=== PATIENT | male | born 1975 | race Caucasian/White ===

== ENCOUNTER 2023-11-20 09:05 | Outpatient (AMB) | payer MEDICARE, MEDICAID, SELFPAY ==
--- NOTE | 2023-11-20 09:07 | MHC.OFFVIS ---
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 Accompanied by: Self / Same As Patient Allergies bee sting Adverse Reaction (Unknown, Uncoded 11/20/23 08:47) Angioedema HPI Chronic pain, peripheral neuropathy/confirmed HPI Details Patient is a pleasant 48 years old male with complex medical and surgical history including diabetes was poorly controlled, improving now (A1C 13.0 down to 7 now), peripheral neuropathy, CKD III, hypothyroidism, arthritis, anxiety depression, left hand surgery, mechanical fall which resulted in right tibial plateua fracture and MSSA bacteremia with RLE hardware infection, s/p skin graft and on chronic suppressive antibiotics, ischemic cardiomyopathy, HTN, HLD, CAD s/p CABD FUNK to LAD 2013 c/b progressive HFrEF with low LV function which resulted in HeartMate3 VAD Implant in 2018 at [facility]. Patient has since moved to [facility] to be under the care of [facility] Cardiac Transplant team. He is working on getting his A1C down to 6.0. A1C 11.6% in June 2023, prior to that was 13 when he was without insulin for a period of time. Patient has multiple pain generators, including shoulders, right knee and right leg pain, and bilateral feet due to diabetic neuropathy. He was under the care of [facility] Pain and Quality Assurance Test Program Manager, last seen in June 2022. He is on long-term anticoagulation on warfarin. He attends [facility] Cardiology team biweekly for VAD readings and denies any recent hypotensive episodes. He was told he needs shoulder surgery but not candidate until he undergoes heart transplant. Patient has pending [facility] Orthopedic evaluation for right knee and leg pain. There is audible grinding of the right knee joint and significant crepitus with right knee flexion. Patient reports his Orthopedic visit has not been scheduled yet as [facility] awaits records from [place]. No recent imaging is available for right knee. Pain is localized to anterior aspect of right knee with mild tenderness around his skin grafting of proximal tibia. Reports decreased sensation along lateral aspect of right lower leg since right leg surgery and skin graft. Patient has been taking gabapentin and hydrocodone-Acetaminophen 5-325 mg. Pain affects his daily activities, functioning, sleep, social activities, mood and quality of life. Current medication regime decreases his pain to 4/10 which allows him to be less symptomatic and more functional. He take buspirone and eszopiclone for depression and insomnia. Patient sleeps in recliner and reports frequent moderate-high levels of anxiety due to VAD implant humming noise as well as worry about his heart condition. Denies any fever, chills, weight loss, abdominal or groin pain, shortness of breaths, chest pain, foot drop, weakness, bladder or bowel dysfunction, or saddle anesthesia. Location Bilateral shoulder, right leg, bilateral feet and hands neuropathy Duration Shoulders -6 years, right leg -2 years, feet -3 years Characteristics of symptom or complaint Pounding, shooting, stabbing, pinching, tingling, burning, sharp, piercing Aggravating or associated factors Movements, walking, standing, climbing stairs, daily chores, cold weather Relieving factors Vicodin, sitting, topical applications, lidocaine patches Treatment PT- no improvement, starts Cardiac Rehab 11/28/23 [facility] Medical History (Updated 11/20/23 @ 12:19 by HASEEB Edouard) History of tibial fracture Bilateral shoulder pain Other chronic pain 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 Chronic pain CKD (chronic kidney disease), stage III MSSA bacteremia Hypercholesterolemia Ischemic cardiomyopathy CAD (coronary artery disease) Depression Hypothyroidism Hypertension Diabetes Anxiety Arthritis Surgical History History of left ventricular assist device (LVAD) H/O hand surgery Social History Alcohol intake: never Patient Tobacco Use Status: Former Tobacco user Review of Systems Const All systems reviewed & are unremarkable except as noted in HPI and below Physical Exam Vital Signs: Last Vital Signs Resp 16 11/20/23 09:12 BMI result Body Mass Index 34.3 General: Appears afebrile. Alert and oriented. Mood and affect appropriate. Pleasant. Follows and participates in conversation appropriately. Respiratory effort is unlabored. No cough. Able to transition from sit to stand unassisted. Ambulates with bilaterally normal heel strike and toe off. Has VAD implant and Dexicomp monitor Cardio Other: VAD HeartMate3 Implant Pump Speed-5900 rpm, Flow-5.2 lpm, PI-2.9-3.0, Power-5.0 W Back/Spine/Pelvis Cervical Spine: cervical ROM normal and No Cervical spine tenderness Thoracic/Lumbar Spine: thoracic and lumbar spine normal to inspection, No Thoracic/lumbar spine scar(s), thoraco-lumbar ROM normal, No thoracic spinal tenderness and No lumbar spinal tenderness Pelvis: no buttock tenderness Skin General skin exam: no rashes or lesions noted Extrem Other: There is a decreased sensation over the soles of the feet and toes. No breaks in the skin. No soft tissue swelling or warmth. Decreased sensation along lateral aspect of right lower leg since right leg surgery and skin graft. Right lower extremity: knee (limited ROM due to pain. Audible grinding of the right knee joint.) Details: tenderness (mild TTP along skin graft incisional lines proximal tibia) Location: of the patella, of the medial joint line and of the lateral joint line and crepitus; no ecchymosis and no unusual warmth Results Reviewed Results Reviewed: No imaging results are available for review today. Assessment & Plan Assessment & Plan (1) Right knee pain: Code(s): M25.561 - Pain in right knee (2) History of tibial fracture: Comment: h/o mechanical fall with resultant right tibial plateau fracture c/b hardware infection due to MSSA bacterimia Code(s): Z87.81 - Personal history of (healed) traumatic fracture (3) Chronic pain syndrome: Code(s): G89.4 - Chronic pain syndrome (4) Bilateral shoulder pain: Code(s): M25.511 - Pain in right shoulder; M25.512 - Pain in left shoulder (5) Chronic painful diabetic neuropathy: Code(s): E11.40 - Type 2 diabetes mellitus with diabetic neuropathy, unspecified Plan Discussed interventional treatments for right knee/leg pain and bilateral foot pain due diabetic peripheral neuropathy. Unfortunately, patient is not candidate for diagnostic injections due to his complex cardiac history, intermediate anticoagulation, VAD implant with HM3 and awaiting to get on heart transplant list. We discussed peripheral nerve stimulation trial for RLE pain for potential Sprint PNS device. Stimulation trial does not involve anesthetic nerve block. Patient will follow up with her cardiology provider and obtain clearance for this. Will try to arrange topical 8% capsaicin application for bilateral foot pain as the next step once we have confirmed availability. Patient reports his pain is well managed with hydrocodone-acetaminophen 5-325 mg and gabapentin which allow him to be less symptomatic and more functional. This is prescribed by his PCP. All questions and concerns have been answered and the patient agreed with the plan. Follow up as needed. Orders: Orders XR knee RT 3V Today M25.561 - Pain in right knee, Z87.81 - Personal history of (healed) traumatic fracture Coding Level of Care Code New Pt Level 4 (63044) Diagnoses Right knee pain M25.561 History of tibial fracture Z87.81 Chronic pain syndrome G89.4 Bilateral shoulder pain M25.511; M25.512 Chronic painful diabetic neuropathy E11.40
[2023-11-20 09:12] VITALS: RESP 16; BMI 34.3
== END 2023-11-20 10:01 | disposition home or self-care (01) ==
PROVIDERS: PCP Internal Medicine; Visit Provider Nurse Practitioner Family
DX: M25.561 Pain in right knee (principal); Z87.81 Personal history of (healed) traumatic fracture; G89.4 Chronic pain syndrome; M25.511 Pain in right shoulder; M25.512 Pain in left shoulder; E11.40 Type 2 diabetes mellitus with diabetic neuropathy, unspecified
CPT/HCPCS: 99204

== ENCOUNTER → 2023-11-20 09:05 | Outpatient (BNVA) | payer MEDICARE, SELFPAY | PROVIDERS: PCP Internal Medicine; Visit Provider Nurse Practitioner Family | DX: G89.4 Chronic pain syndrome (principal); M25.561 Pain in right knee; M25.511 Pain in right shoulder; M25.512 Pain in left shoulder; E11.40 Type 2 diabetes mellitus with diabetic neuropathy, unspecified; Z87.81 Personal history of (healed) traumatic fracture | CPT/HCPCS: 99202 ==

== ENCOUNTER 2023-12-20 13:12 | Outpatient (AMB) | payer MEDICARE, MEDICAID, SELFPAY ==
--- NOTE | 2023-12-20 13:13 | MHC.OFFVIS ---
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 Denies any recent cough, cold, infection, fever or other significant changes in medical history since last office visit. Patient reports he had follow up with his Cab Driver yesterday and was told his sitting MAP=86 and standing MAP=76. PRIOR: Patient is a pleasant 48 years old male with complex medical and surgical history including diabetes was poorly controlled, improving now (A1C 13.0 down to 7 now), peripheral neuropathy, CKD III, hypothyroidism, arthritis, anxiety depression, left hand surgery, mechanical fall which resulted in right tibial plateua fracture and MSSA bacteremia with RLE hardware infection, s/p skin graft and on chronic suppressive antibiotics, ischemic cardiomyopathy, HTN, HLD, CAD s/p CABD FUNK to LAD 2013 c/b progressive HFrEF with low LV function which resulted in HeartMate3 VAD Implant in 2018 at [facility]. Patient has since moved to [facility] to be under the care of [facility] Cardiac Transplant team. He is working on getting his A1C down to 6.0. A1C 11.6% in June 2023, prior to that was 13 when he was without insulin for a period of time. Patient has multiple pain generators, including shoulders, right knee and right leg pain, and bilateral feet due to diabetic neuropathy. He was under the care of [facility] Pain and Mobile Home Set Up Person, last seen in June 2022. He is on long-term anticoagulation on warfarin. He attends [facility] Cardiology team biweekly for VAD readings and denies any recent hypotensive episodes. He was told he needs shoulder surgery but not candidate until he undergoes heart transplant. Patient has pending [facility] Orthopedic evaluation for right knee and leg pain. There is audible grinding of the right knee joint and significant crepitus with right knee flexion. Patient reports his Orthopedic visit has not been scheduled yet as [facility] awaits records from [place]. No recent imaging is available for right knee. Pain is localized to anterior aspect of right knee with mild tenderness around his skin grafting of proximal tibia. Reports decreased sensation along lateral aspect of right lower leg since right leg surgery and skin graft. Patient has been taking gabapentin and hydrocodone-Acetaminophen 5-325 mg. Pain affects his daily activities, functioning, sleep, social activities, mood and quality of life. Current medication regime decreases his pain to 4/10 which allows him to be less symptomatic and more functional. He take buspirone and eszopiclone for depression and insomnia. Patient sleeps in recliner and reports frequent moderate-high levels of anxiety due to VAD implant humming noise as well as worry about his heart condition. Denies any fever, chills, weight loss, abdominal or groin pain, shortness of breaths, chest pain, foot drop, weakness, bladder or bowel dysfunction, or saddle anesthesia. Location Bilateral shoulder, right leg, bilateral feet and hands neuropathy Duration Shoulders -6 years, right leg -2 years, feet -3 years Characteristics of symptom or complaint Pounding, shooting, stabbing, pinching, tingling, burning, sharp, piercing Aggravating or associated factors Movements, walking, standing, climbing stairs, daily chores, cold weather Relieving factors Vicodin, sitting, topical applications, lidocaine patches Treatment PT- no improvement, starts Cardiac Rehab 11/28/23 [facility] Medical History History of tibial fracture Bilateral shoulder pain Other chronic pain 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 Chronic pain CKD (chronic kidney disease), stage III MSSA bacteremia Hypercholesterolemia Ischemic cardiomyopathy CAD (coronary artery disease) Depression Hypothyroidism Hypertension Diabetes Anxiety Arthritis Surgical History History of left ventricular assist device (LVAD) H/O hand surgery Social History Alcohol intake: never Patient Tobacco Use Status: Former Tobacco user Review of Systems Const All systems reviewed & are unremarkable except as noted in HPI and below Physical Exam Vital Signs: Last Vital Signs Resp 16 12/20/23 13:59 Pulse Ox 98 12/20/23 13:59 Oxygen Delivery Method Room Air 12/20/23 13:17 BMI result Body Mass Index 37.2 General: Appears afebrile. Alert and oriented. Mood and affect appropriate. Pleasant. Follows and participates in conversation appropriately. Respiratory effort is unlabored. No cough. Able to transition from sit to stand unassisted. Ambulates with bilaterally normal heel strike and toe off. Has VAD implant and Dexicomp monitor Cardio Other: VAD HeartMate3 Implant Pump Speed-5900 rpm, Flow-4.9 lpm, PI-2.1, Power-4.7 W Skin General skin exam: no rashes or lesions noted Extrem Other: There is a decreased sensation over the soles of the feet and toes. No breaks in the skin. No soft tissue swelling or warmth. Decreased sensation along lateral aspect of right lower leg since right leg surgery and skin graft. Right lower extremity: knee (limited ROM due to pain. Audible grinding of the right knee joint.) Details: tenderness (mild TTP along skin graft incisional lines proximal tibia) Location: of the patella, of the medial joint line and of the lateral joint line and crepitus Office Procedures Topical Capsaicin Date 1:: 12/20/23 Main area of pain on the body: Bilateral feet Laterality: Bilateral Location of left foot pain: Plantar, Dorsal, Medial, Lateral and Distal Location of right foot pain: Plantar, Dorsal, Medial, Lateral and Distal Quality of pain: Aching, Nagging, Burning, Gnawing, Numb-like and Tiring Details:: Two patches, 560 cm2 were utilized per each foot. EMLA Cream (lidocaine 2.5% and prilocaine 2.5%) was not applied by patient prior to application of the patches and he decided to proceed without EMLA cream. The patient tolerated the procedure well. Patient?s vitals signs remained stable throughout the procedure. Patient was able to complete the stipulated 30 minutes of the therapeutic application without any discomfort. Office Meds capsaicin-skin cleanser 8 % topical kit Performing Provider: HASEEB Edouard Performing Location: [facility] Administered by: HASEEB Edouard on 12/20/23 13:43 Dose Route Admin Location Dispensed Lot Number Expiration Date NDC Court Monitor 4 ea topical [facility] 4 ea [id number] 03/29/26 [id number] scroll kit Assessment & Plan Assessment & Plan (1) Chronic painful diabetic neuropathy: Code(s): E11.40 - Type 2 diabetes mellitus with diabetic neuropathy, unspecified (2) Chronic pain syndrome: Code(s): G89.4 - Chronic pain syndrome (3) Right knee pain: Code(s): M25.561 - Pain in right knee Plan Patient is status post 1st round of application of topical capsaicin 8% for peripheral neuropathy in bilateral feet. Patient tolerated the procedure without significant discomfort without application of EMLA cream prior to the procedure. He was discharged home in stable condition with discharge instructions. Patient continues to endorse right knee pain. He has pending cardiology clearance for stimulation trial that does not involve anesthetic nerve block. Unfortunately, patient is not candidate for diagnostic injections due to his complex cardiac history, fci anticoagulation, VAD implant with HM3 and awaiting to get on heart transplant list. Patient reports his pain is well managed with hydrocodone-acetaminophen 5-325 mg and gabapentin which allow him to be less symptomatic and more functional. This is prescribed by his PCP. All questions and concerns have been answered and the patient agreed with the plan. Follow up as needed. Greater than 35 minutes were spent in therapeutic application, and in coordination of the care. Orders: Orders AMB Capsaicin Patch - Practice Supplied Today E11.40 - Type 2 diabetes mellitus with diabetic neuropathy, unspecified Coding Level of Care Code Est Pt Level 4 (11063) Diagnoses Chronic painful diabetic neuropathy E11.40 Chronic pain syndrome G89.4 Right knee pain M25.561
[2023-12-20 13:17] VITALS: RESP 14; O2SAT 97; BMI 37.2
[2023-12-20 13:59] VITALS: RESP 16; O2SAT 98
[2023-12-20 14:39] VITALS: RESP 16; O2SAT 98
== END 2023-12-20 14:26 | disposition home or self-care (01) ==
PROVIDERS: PCP Internal Medicine; Visit Provider Nurse Practitioner Family
DX: E11.40 Type 2 diabetes mellitus with diabetic neuropathy, unspecified (principal); G89.4 Chronic pain syndrome; M25.561 Pain in right knee
CPT/HCPCS: 99214

== ENCOUNTER → 2023-12-20 13:12 | Outpatient (BNVA) | payer MEDICARE, MEDICAID, SELFPAY | PROVIDERS: PCP Internal Medicine; Visit Provider Nurse Practitioner Family | DX: E11.40 Type 2 diabetes mellitus with diabetic neuropathy, unspecified (principal); M25.561 Pain in right knee; G89.4 Chronic pain syndrome; F11.20 Opioid dependence, uncomplicated; Z79.01 Long term (current) use of anticoagulants | CPT/HCPCS: 17999; 99212; J7336 ==

== ENCOUNTER 2024-03-21 11:16 | Outpatient (AMB) | payer MEDICARE, MEDICAID, SELFPAY ==
--- NOTE | 2024-03-21 11:22 | A.OFFVIS_ITS ---
Vital Signs 03/21/24 11:34 03/21/24 11:49 03/21/24 12:05 Height 5 ft 11 in Weight 262 lb BMI 36.5 BP not taken reason Medical Reason Medical Reason Medical Reason Respiration 16 16 16 Pulse Oximetry (%) 96 97 Oxygen Delivery Method Room Air Room Air Intake Visit Reasons: Qutenza Intake Note: Pain today 05/07 Insulator Helper Required: No Accompanied by: Self / Same As Patient Allergies bee sting Adverse Reaction (Unknown, Uncoded 11/20/23 08:47) Angioedema HPI Comments Details: Patient presents for 2nd application of capsaicin 8% topical patch for peripheral neuropathy in bilateral feet. Denies any recent cough, cold, infection, fever or other significant changes in medical history since last office visit. 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 PRIOR: Patient is a pleasant 48 years old male with complex medical and surgical history including diabetes was poorly controlled, improving now (A1C 13.0 down to 7 now), peripheral neuropathy, CKD III, hypothyroidism, arthritis, anxiety depression, left hand surgery, mechanical fall which resulted in right tibial plateua fracture and MSSA bacteremia with RLE hardware infection, s/p skin graft and on chronic suppressive antibiotics, ischemic cardiomyopathy, HTN, HLD, CAD s/p CABD FUNK to LAD 2013 c/b progressive HFrEF with low LV function which resulted in HeartMate3 VAD Implant [address] [facility]. Patient has since moved to [facility] to be under the care of [facility] Cardiac Transplant team. He is working on getting his A1C down to 6.0. A1C 11.6% in June 2023, prior to that was 13 when he was without insulin for a period of time. Patient has multiple pain generators, including shoulders, right knee and right leg pain, and bilateral feet due to diabetic neuropathy. He was under the care of [facility] Pain and Physician Assistant, last seen in June 2022. He is on long-term anticoagulation on warfarin. He attends [facility] Cardiology team biweekly for VAD readings and denies any recent hypotensive episodes. He was told he needs shoulder surgery but not candidate until he undergoes heart transplant. Patient has pending [facility] Orthopedic evaluation for right knee and leg pain. There is audible grinding of the right knee joint and significant crepitus with right knee flexion. Patient reports his Orthopedic visit has not been scheduled yet as [facility] awaits records from [place]. No recent imaging is available for right knee. Pain is localized to anterior aspect of right knee with mild tenderness around his skin grafting of proximal tibia. Reports decreased sensation along lateral aspect of right lower leg since right leg surgery and skin graft. Patient has been taking gabapentin and hydrocodone-Acetaminophen 5-325 mg. Pain affects his daily activities, functioning, sleep, social activities, mood and quality of life. Current medication regime decreases his pain to 4/10 which allows him to be less symptomatic and more functional. He take buspirone and eszopiclone for depression and insomnia. Patient sleeps in recliner and reports frequent moderate-high levels of anxiety due to VAD implant humming noise as well as worry about his heart condition. Denies any fever, chills, weight loss, abdominal or groin pain, shortness of breaths, chest pain, foot drop, weakness, bladder or bowel dysfunction, or saddle anesthesia. Location Bilateral shoulder, right leg, bilateral feet and hands n europathy Duration Shoulders -6 years, right leg -2 years, feet -3 years Characteristics of symptom or complaint Pounding, shooting, stabbing, pinching, tingling, burning, sharp, piercing Aggravating or associated factors Movements, walking, standing, climbing stairs, daily chores, cold weather Relieving factors Vicodin, sitting, topical applications, lidocaine patches Treatment PT- no improvement, starts Cardiac Rehab 11/28/23 [facility] Medical History History of tibial fracture Bilateral shoulder pain Other chronic pain 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 Chronic pain CKD (chronic kidney disease), stage III MSSA bacteremia Hypercholesterolemia Ischemic cardiomyopathy CAD (coronary artery disease) Depression Hypothyroidism Hypertension Diabetes Anxiety Arthritis Surgical History History of left ventricular assist device (LVAD) H/O hand surgery Social History Alcohol intake: never Patient Tobacco Use Status: Former Tobacco user Review of Systems Const All systems reviewed & are unremarkable except as noted in HPI and below Physical Exam Vital Signs: Last Vital Signs Resp 16 03/21/24 11:49 Pulse Ox 96 03/21/24 11:49 Oxygen Delivery Method Room Air 03/21/24 11:49 BMI result Body Mass Index 36.5 General: Appears afebrile. Alert and oriented. Mood and affect appropriate. Pleasant. Follows and participates in conversation appropriately. Respiratory effort is unlabored. No cough. Able to transition from sit to stand unassisted. Ambulates with bilaterally normal heel strike and toe off. Has VAD implant and Dexicomp monitor Cardio Other: VAD HeartMate3 Implant Pump Speed-5900 rpm, Flow-3.7 lpm, PI-6.9, Power-5.0 W Skin General skin exam: no rashes or lesions noted Extrem Other: There is a decreased sensation over the soles of the feet and toes. No breaks in the skin. No soft tissue swelling or warmth. Decreased sensation along lateral aspect of right lower leg since right leg surgery and skin graft. General: Yes capillary refill normal, Yes no clubbing, cyanosis or edema and Yes no calf tenderness Right lower extremity: knee (limited ROM due to pain. Audible grinding of the right knee joint.) Details: tenderness (mild TTP along skin graft incisional lines proximal tibia) Location: of the patella, of the medial joint line and of the lateral joint line and crepitus Office Procedures Topical Capsaicin Date 1:: 12/20/23 Date 2:: 03/21/24 Main area of pain on the body: Bilateral feet and toes Laterality: Bilateral Location of left foot pain: Plantar, Dorsal, Medial, Lateral and Distal Location of right foot pain: Plantar, Dorsal, Medial, Lateral and Distal Quality of pain: Aching, Nagging, Burning, Gnawing, Numb-like, Tiring and Penetrating Details:: Two patches, 560 cm2 were utilized per each foot. EMLA Cream (lidocaine 2.5% and prilocaine 2.5%) was not applied at home by patient prior to application of the patches. Patient elected to proceed with the procedure without EMLA cream. The patient tolerated the procedure well. Patient?s vitals signs remained stable throughout the procedure. Patient was able to complete the stipulated 30 minutes of the therapeutic application without any discomfort. Office Meds capsaicin-skin cleanser 8 % topical kit Performing Provider: HASEEB Edouard Performing Location: [facility] Administered by: HASEEB Edouard on 03/21/24 11:33 Dose Route Admin Location Dispensed Lot Number Expiration Date [employer] 4 ea topical [facility] 4 ea 04/28/2026 04/28/26 25638-038-32 [employer] Assessment & Plan Assessment & Plan (1) Chronic pain syndrome: Code(s): G89.4 - Chronic pain syndrome Category: Medical (2) Chronic painful diabetic neuropathy: Code(s): E11.40 - Type 2 diabetes mellitus with diabetic neuropathy, unspecified Category: Medical (3) Right knee pain: Code(s): M25.561 - Pain in right knee Category: Medical Plan Patient is status post 2nd round of application of topical capsaicin 8% for peripheral neuropathy in bilateral feet. Patient tolerated the procedure without significant discomfort without application of EMLA cream prior to the procedure. He was discharged home in stable condition with discharge instructions. Patient reports chronic right knee pain is well managed with hydrocodone- acetaminophen 5-325 mg and gabapentin which is prescribed by his PCP. All questions and concerns have been answered and the patient agreed with the plan. Follow up as needed. Greater than 35 minutes were spent in therapeutic application, and in coordination of the care. Orders: Orders AMB Capsaicin Patch - Practice Supplied Today E11.40 - Type 2 diabetes mellitus with diabetic neuropathy, unspecified, G89.4 - Chronic pain syndrome Medications: Refilled lidocaine-prilocaine 2.5-2.5 % Apply 15-30 min to both feet prior to Qutenza application visit 1 appl topical ONCE 2 days 30 grams 3RF pain E11.40 - Type 2 diabetes mellitus with diabetic neuropathy, unspecified lidocaine-prilocaine 2.5-2.5 % Apply 15-30 min to both feet prior to Qutenza application visit 1 appl topical ONCE 2 days 30 grams 3RF pain E11.40 - Type 2 diabetes mellitus with diabetic neuropathy, unspecified Coding Level of Care Code Est Pt Level 4 (44700) Diagnoses Chronic pain syndrome G89.4 Chronic painful diabetic neuropathy E11.40 Right knee pain M25.561
[2024-03-21 11:34] VITALS: RESP 16; BMI 36.5
[2024-03-21 11:49] VITALS: RESP 16; O2SAT 96
[2024-03-21 12:05] VITALS: RESP 16; O2SAT 97
== END 2024-03-21 12:06 | disposition home or self-care (01) ==
PROVIDERS: PCP Internal Medicine; Visit Provider Nurse Practitioner Family
DX: G89.4 Chronic pain syndrome (principal); E11.40 Type 2 diabetes mellitus with diabetic neuropathy, unspecified; M25.561 Pain in right knee
CPT/HCPCS: 17999; 99214

== ENCOUNTER → 2024-03-21 11:16 | Outpatient (BNVA) | payer MEDICARE, MEDICAID, SELFPAY | PROVIDERS: PCP Internal Medicine; Visit Provider Nurse Practitioner Family | DX: E11.40 Type 2 diabetes mellitus with diabetic neuropathy, unspecified (principal); G89.4 Chronic pain syndrome; M25.561 Pain in right knee | CPT/HCPCS: 17999; 99212; J7336 ==

== ENCOUNTER → 2024-06-23 11:02 | Outpatient (BNVA) | payer MEDICARE, MEDICAID, SELFPAY | PROVIDERS: PCP Internal Medicine; Visit Provider Nurse Practitioner Family ==

== ENCOUNTER 2024-07-01 10:20 | Outpatient (AMB) | payer MEDICARE, MEDICAID, SELFPAY ==
--- NOTE | 2024-07-01 10:25 | MHC.OFFVIS ---
Vital Signs 07/01/24 10:30 07/01/24 11:22 07/01/24 11:23 Height 5 ft 11 in Weight 268 lb BMI 37.4 BP not taken reason Medical Reason Medical Reason Medical Reason Respiration 16 16 16 Comment 15 mins after Qutenza application 30 mins after qutenza application Intake Visit Reasons: Qutenza Allergies bee sting Adverse Reaction (Unknown, Uncoded 11/20/23 08:47) Angioedema Medication List - Last Reconciled 07/01/24 by HASEEB Edouard amlodipine 10 mg PO DAILY atorvastatin 80 mg PO DAILY buspirone 30 mg PO BID carvedilol 37.5 mg PO BID cephalexin 500 mg PO TID dicyclomine mg PO escitalopram oxalate 20 mg PO DAILY eszopiclone 2 mg PO BEDTIME PRN fluoxetine 40 mg PO BID furosemide 40 - 80 mg PO DAILY gabapentin mg PO DAILY insulin aspart U-100 (Novolog FlexPen U-100 Insulin aspart) subcut insulin glargine (Lantus U-100 Insulin) units subcut levothyroxine 150 mcg PO DAILY lidocaine-prilocaine 2.5-2.5 % 1 appl topical ONCE 2 days oxycodone 10 mg PO QID PRN sacubitril-valsartan 97-103 mg (Entresto) 1 tab PO BID spironolactone 25 mg PO DAILY tirzepatide (Mounjaro) mg subcut warfarin (Jantoven) 7.5 mg PO DAILY HPI Comments Details: Patient presents for 3rd application of capsaicin 8% topical patch for peripheral neuropathy in bilateral feet. He reports ongoing right knee pain and is scheduled to undergo left knee CT scan on 07/04/24. Denies any recent cough, cold, infection, fever or other significant changes in medical history since last office visit. PRIOR: Patient is a pleasant 48 years old male with complex medical and surgical history including diabetes was poorly controlled, improving now (A1C 13.0 down to 7 now), peripheral neuropathy, CKD III, hypothyroidism, arthritis, anxiety depression, left hand surgery, mechanical fall which resulted in right tibial plateua fracture and MSSA bacteremia with RLE hardware infection, s/p skin graft and on chronic suppressive antibiotics, ischemic cardiomyopathy, HTN, HLD, CAD s/p CABD FUNK to LAD 2013 c/b progressive HFrEF with low LV function which resulted in HeartMate3 VAD Implant in 2018 at [facility]. Patient has since moved to [facility] to be under the care of [facility] Cardiac Transplant team. He is working on getting his A1C down to 6.0. A1C 11.6% in June 2023, prior to that was 13 when he was without insulin for a period of time. Patient has multiple pain generators, including shoulders, right knee and right leg pain, and bilateral feet due to diabetic neuropathy. He was under the care of [facility] Pain and Headliner Installer, last seen in June 2022. He is on long-term anticoagulation on warfarin. He attends [facility] Cardiology team biweekly for VAD readings and denies any recent hypotensive episodes. He was told he needs shoulder surgery but not candidate until he undergoes heart transplant. Patient has pending [facility] Orthopedic evaluation for right knee and leg pain. There is audible grinding of the right knee joint and significant crepitus with right knee flexion. Patient reports his Orthopedic visit has not been scheduled yet as [facility] awaits records from [place]. No recent imaging is available for right knee. Pain is localized to anterior aspect of right knee with mild tenderness around his skin grafting of proximal tibia. Reports decreased sensation along lateral aspect of right lower leg since right leg surgery and skin graft. Patient has been taking gabapentin and hydrocodone-Acetaminophen 5-325 mg. Pain affects his daily activities, functioning, sleep, social activities, mood and quality of life. Current medication regime decreases his pain to 4/10 which allows him to be less symptomatic and more functional. He take buspirone and eszopiclone for depression and insomnia. Patient sleeps in recliner and reports frequent moderate-high levels of anxiety due to VAD implant humming noise as well as worry about his heart condition. Denies any fever, chills, weight loss, abdominal or groin pain, shortness of breaths, chest pain, foot drop, weakness, bladder or bowel dysfunction, or saddle anesthesia. Location Bilateral shoulder, right leg, bilateral feet and hands neuropathy Duration Shoulders -6 years, right leg -2 years, feet -3 years Characteristics of symptom or complaint Pounding, shooting, stabbing, pinching, tingling, burning, sharp, piercing Aggravating or associated factors Movements, walking, standing, climbing stairs, daily chores, cold weather Relieving factors Vicodin, sitting, topical applications, lidocaine patches Treatment PT- no improvement, starts Cardiac Rehab 11/28/23 [facility] Medical History History of tibial fracture Bilateral shoulder pain Other chronic pain 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 Chronic pain CKD (chronic kidney disease), stage III MSSA bacteremia Hypercholesterolemia Ischemic cardiomyopathy CAD (coronary artery disease) Depression Hypothyroidism Hypertension Diabetes Anxiety Arthritis Surgical History History of left ventricular assist device (LVAD) H/O hand surgery Social History Alcohol intake: never Patient Tobacco Use Status: Former Tobacco user Review of Systems Const All systems reviewed & are unremarkable except as noted in HPI and below Physical Exam Vital Signs: Last Vital Signs Resp 16 07/01/24 11:23 BMI result Body Mass Index 37.4 General: Appears afebrile. Alert and oriented. Mood and affect appropriate. Pleasant. Follows and participates in conversation appropriately. Respiratory effort is unlabored. No cough. Able to transition from sit to stand unassisted. Ambulates with bilaterally normal heel strike and toe off. Has VAD implant and Dexicomp monitor. Cardio Other: VAD HeartMate3 Implant Pump Speed-5850 rpm, Flow-4.2 lpm, PI-3.0, Power-4.7 W Skin General skin exam: no rashes or lesions noted Extrem Other: There is a decreased sensation over the soles of the feet and toes. No breaks in the skin. No soft tissue swelling or warmth. Decreased sensation along lateral aspect of right lower leg since right leg surgery and skin graft. Feet are slightly cool to touch, otherwise skin is warm to touch. General: Yes capillary refill normal, Yes no clubbing, cyanosis or edema and Yes no calf tenderness Right lower extremity: knee (Limited ROM due to pain. ) Details: tenderness (mild TTP along skin graft incisional lines proximal tibia) Location: of the patella, of the medial joint line and of the lateral joint line and crepitus Office Procedures Topical Capsaicin Date 1:: 12/20/23 Date 2:: 03/21/24 Main area of pain on the body: Bilateral feet and toes Laterality: Bilateral Location of left foot pain: Anterior, Posterior, Plantar, Proximal, Dorsal, Medial, Lateral and Distal Location of right foot pain: Anterior, Posterior, Plantar, Proximal, Dorsal, Medial, Lateral and Distal Quality of pain: Aching, Nagging, Burning, Gnawing, Numb-like and Tiring Details:: Two patches, 560 cm2 were utilized per each foot. EMLA Cream (lidocaine 2.5% and prilocaine 2.5%) was not applied at home by patient prior to application of the patches. Patient elected to proceed with the procedure without EMLA cream. The patient tolerated the procedure well. Patient was able to complete the stipulated 30 minutes of the therapeutic application without any discomfort. Office Meds capsaicin-skin cleanser 8 % topical kit Performing Provider: HASEEB Edouard Performing Location: [facility] Administered by: HASEEB Edouard on 07/01/24 10:44 Dose Route Admin Location Dispensed Lot Number Expiration Date [facility] Inventory Checker 4 ea topical [facility] 4 ea [id number] 04/28/26 55013-390-92 [employer] Results Reviewed Results Reviewed: No imaging results are available for review today. Assessment & Plan Assessment & Plan (1) Chronic pain syndrome: Code(s): G89.4 - Chronic pain syndrome Category: Medical (2) Chronic painful diabetic neuropathy: Code(s): E11.40 - Type 2 diabetes mellitus with diabetic neuropathy, unspecified Category: Medical (3) Right knee pain: Code(s): M25.561 - Pain in right knee Category: Medical Plan Patient is status post 3rd round of application of topical capsaicin 8% for peripheral neuropathy in bilateral feet. Patient tolerated the procedure without significant discomfort without application of EMLA cream prior to the procedure. Patient was discharged home in stable condition with discharge instructions. Patient reports chronic right knee pain is well managed with oxycodone and gabapentin which is prescribed by his PCP. Discussed interventional treatments for right knee, including gel injections. Patient reports he has pending CT scan of right knee. All questions and concerns have been answered and the patient agreed with the plan. Follow up as needed. Greater than 40 minutes were spent in therapeutic application, and in coordination of the care. Orders: Orders AMB Capsaicin Patch - Practice Supplied Today E11.40 - Type 2 diabetes mellitus with diabetic neuropathy, unspecified Coding Level of Care Code Est Pt Level 4 (17338) Complex EM visit Add On G2211 Diagnoses Chronic pain syndrome G89.4 Chronic painful diabetic neuropathy E11.40 Right knee pain M25.561
[2024-07-01 10:30] VITALS: RESP 16; BMI 37.4
[2024-07-01 11:22] VITALS: RESP 16
[2024-07-01 11:23] VITALS: RESP 16
== END 2024-07-01 11:24 | disposition home or self-care (01) ==
PROVIDERS: PCP Internal Medicine; Visit Provider Nurse Practitioner Family
DX: G89.4 Chronic pain syndrome (principal); E11.40 Type 2 diabetes mellitus with diabetic neuropathy, unspecified; M25.561 Pain in right knee
CPT/HCPCS: 17999; 99214

== ENCOUNTER → 2024-07-01 10:20 | Outpatient (BNVA) | payer MEDICARE, MEDICAID, SELFPAY | PROVIDERS: PCP Internal Medicine; Visit Provider Nurse Practitioner Family | DX: E11.40 Type 2 diabetes mellitus with diabetic neuropathy, unspecified (principal); G89.4 Chronic pain syndrome; M25.561 Pain in right knee | CPT/HCPCS: 17999; 99212; J7336 ==

== ENCOUNTER 2024-09-30 10:53 | Outpatient (AMB) | payer MEDICARE, SELFPAY ==
--- NOTE | 2024-09-30 10:57 | MHC.OFFVIS ---
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 Denies any recent cough, cold, infection, fever or other significant changes in medical history since last office visit. PRIOR: Patient is a pleasant 48 years old male with complex medical and surgical history including diabetes was poorly controlled, improving now (A1C 13.0 down to 7 now), peripheral neuropathy, CKD III, hypothyroidism, arthritis, anxiety depression, left hand surgery, mechanical fall which resulted in right tibial plateua fracture and MSSA bacteremia with RLE hardware infection, s/p skin graft and on chronic suppressive antibiotics, ischemic cardiomyopathy, HTN, HLD, CAD s/p CABD FUNK to LAD 2013 c/b progressive HFrEF with low LV function which resulted in HeartMate3 VAD Implant in 2018 at [facility]. Patient has since moved to [facility] to be under the care of [facility] team. He is working on getting his A1C down to 6.0. A1C 11.6% in June 2023, prior to that was 13 when he was without insulin for a period of time. Patient has multiple pain generators, including shoulders, right knee and right leg pain, and bilateral feet due to diabetic neuropathy. He was under the care of [facility], last seen in June 2022. He is on long-term anticoagulation on warfarin. He attends [facility] team biweekly for VAD readings and denies any recent hypotensive episodes. He was told he needs shoulder surgery but not candidate until he undergoes heart transplant. Patient has pending [facility] Orthopedic evaluation for right knee and leg pain. There is audible grinding of the right knee joint and significant crepitus with right knee flexion. Patient reports his Orthopedic visit has not been scheduled yet as [facility] awaits records from [place]. No recent imaging is available for right knee. Pain is localized to anterior aspect of right knee with mild tenderness around his skin grafting of proximal tibia. Reports decreased sensation along lateral aspect of right lower leg since right leg surgery and skin graft. Patient has been taking gabapentin and hydrocodone-Acetaminophen 5-325 mg. Pain affects his daily activities, functioning, sleep, social activities, mood and quality of life. Current medication regime decreases his pain to 4/10 which allows him to be less symptomatic and more functional. He take buspirone and eszopiclone for depression and insomnia. Patient sleeps in recliner and reports frequent moderate-high levels of anxiety due to VAD implant humming noise as well as worry about his heart condition. Denies any fever, chills, weight loss, abdominal or groin pain, shortness of breaths, chest pain, foot drop, weakness, bladder or bowel dysfunction, or saddle anesthesia. Location Bilateral shoulder, right leg, bilateral feet and hands neuropathy Duration Shoulders -6 years, right leg -2 years, feet -3 years Characteristics of symptom or complaint Pounding, shooting, stabbing, pinching, tingling, burning, sharp, piercing Aggravating or associated factors Movements, walking, standing, climbing stairs, daily chores, cold weather Relieving factors Vicodin, sitting, topical applications, lidocaine patches Treatment PT- no improvement, starts Cardiac Rehab 11/28/23 [facility] Medical History History of tibial fracture Bilateral shoulder pain Other chronic pain 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 Chronic pain CKD (chronic kidney disease), stage III MSSA bacteremia Hypercholesterolemia Ischemic cardiomyopathy CAD (coronary artery disease) Depression Hypothyroidism Hypertension Diabetes Anxiety Arthritis Surgical History History of left ventricular assist device (LVAD) H/O hand surgery Social History Alcohol intake: never Patient Tobacco Use Status: Former Tobacco user Review of Systems Const All systems reviewed & are unremarkable except as noted in HPI and below Physical Exam Vital Signs: Last Vital Signs Resp 16 09/30/24 10:59 BMI result Body Mass Index 39.3 General: Appears afebrile. Alert and oriented. Mood and affect appropriate. Pleasant. Follows and participates in conversation appropriately. Respiratory effort is unlabored. No cough. Able to transition from sit to stand unassisted. Ambulates with bilaterally normal heel strike and toe off. Has VAD implant and Dexicomp monitor. Cardio Other: VAD HeartMate3 Implant Pump Speed-5900 rpm, Flow-4.8 lpm, PI-5.2, Power-5.1 W Skin General skin exam: no rashes or lesions noted Extrem Other: There is a decreased sensation over the soles of the feet and toes. No breaks in the skin. No soft tissue swelling or warmth. Decreased sensation along lateral aspect of right lower leg since right leg surgery and skin graft. Feet are slightly cool to touch, otherwise skin is warm to touch. General: Yes capillary refill normal, Yes no clubbing, cyanosis or edema and Yes no calf tenderness Office Procedures Topical Capsaicin Date 1:: 12/20/23 Date 2:: 03/21/24 Date 3:: 07/01/24 Date 4:: 09/30/24 Main area of pain on the body: Bilateral feet Laterality: Bilateral Location of left foot pain: Anterior, Posterior, Plantar, Dorsal, Medial, Lateral and Distal Location of right foot pain: Anterior, Posterior, Plantar, Dorsal, Medial, Lateral and Distal Quality of pain: Aching, Nagging, Burning, Gnawing and Numb-like Details:: Two patches, 560 cm2 were utilized per each foot. EMLA Cream (lidocaine 2.5% and prilocaine 2.5%) was not applied at home by patient prior to application of the patches. Patient elected to proceed with the procedure without EMLA cream. The patient tolerated the procedure well. Patient remained stable throughout the procedure. Patient was able to complete the stipulated 30 minutes of the therapeutic application without any discomfort. Office Meds capsaicin-skin cleanser 8 % topical kit Performing Provider: HASEEB Edouard Performing Location: [facility] Administered by: HASEEB Edouard on 09/30/24 11:10 Dose Route Admin Location Dispensed Lot Number Expiration Date [facility] Steward/Stewardess Wine 4 ea topical [facility] 4 ea [id number] 05/29/26 39404-003-70 [employer] Assessment & Plan Assessment & Plan (1) Chronic pain syndrome: Code(s): G89.4 - Chronic pain syndrome Category: Medical (2) Chronic painful diabetic neuropathy: Code(s): E11.40 - Type 2 diabetes mellitus with diabetic neuropathy, unspecified Category: Medical (3) Right knee pain: Code(s): M25.561 - Pain in right knee Category: Medical Plan Patient is status post 4th round of application of topical capsaicin 8% for peripheral neuropathy in bilateral feet. Patient tolerated the procedure without significant discomfort without application of EMLA cream prior to the procedure. Patient was discharged home in stable condition with discharge instructions. Patient reports chronic right knee pain is well managed with oxycodone IR 10 mg prn, morphine ER 30 mg BID and gabapentin 300 mg BID which is prescribed by his PCP. Previously discussed interventional treatments for right knee, including gel injections. Patient completed CT scan of right knee in June and reports he was told it was within normal findings. All questions and concerns have been answered and the patient agreed with the plan. Follow up as needed. Greater than 40 minutes were spent in therapeutic application, and in coordination of the care. Orders: Orders AMB Capsaicin Patch - Practice Supplied Today E11.40 - Type 2 diabetes mellitus with diabetic neuropathy, unspecified Coding Level of Care Code Est Pt Level 4 (56122) Complex EM visit Add On G2211 Diagnoses Chronic pain syndrome G89.4 Chronic painful diabetic neuropathy E11.40 Right knee pain M25.561
[2024-09-30 10:59] VITALS: RESP 16; BMI 39.3
[2024-09-30 11:25] VITALS: RESP 16; BMI 39.3
[2024-09-30 11:44] VITALS: RESP 16; BMI 39.3
--- OUTSIDE RECORDS SUMMARY | 2024-10-07 12:56 | XMS_ITS | Continuity of Care Document ---
Author Organization [facility] Address [address] [place] [id number]- Care Team Providers Care Electric Blanket Wirer Name Role Phone Elier BERNARDO, Juanita Buitrago Primary Care Physician Encounter [facility] [place] Date(s): 08/13/24 - 09/12/24 [facility] [address] [place] [address]- Encounter Type: Triage Allergies, Adverse Reactions, Alerts Substance Criticality Severity Reaction Reaction Severity Status Bee Stings Active Medications Alcohol Wipes See Instructions, # 1 pack/packet, Refills 0, Tot. Refills 0, Maintenance, Dispense 1 box, 06/13/23 5:02:00 PM EDT, Supply, 180, cm, 05/30/23 7:56:00 EDT, Height, 123, kg, 04/10/23 13:52:00 EDT, Dry Weight Start Date: 06/13/23 Status: Ordered Quantity: 1.0 Unit: pack/packet Repeat number: 1 Aldactone 25 mg oral tablet 25 mg, 1, tablet, By Mouth, Daily, # 90 tablet, Refills 4, Tot. Refills 4, Maintenance, 05/30/24 8:35:00 AM EDT, Route to Pharmacy Electronically, [facility] ([place]), Partial fill upon patient request if the prescription is for a schedule II opioid drug., 180, cm, 05/19/24 14:04:00 EDT, Height, 119.2, kg,11/27/23 6:43:00 EST, Dry Weight Start Date: 05/30/24 Stop Date: 08/23/25 Status: Ordered Quantity: 90.0 Unit: tablet Repeat number: 5 atorvastatin 80 mg oral tablet See Instructions, TAKE 1 TABLET BY MOUTH DAILY, # 30 tablet, 10 Refills, Maintenance, 06/05/24 4:18:00 PM EDT, [facility], 180, cm, 05/19/24 14:04:00 EDT, Height, 119.2, kg, 11/27/23 6:43:00 EST, Dry Weight Start Date: 06/05/24 Status: Ordered Quantity: 30.0 Unit: tablet Repeat number: 1 busPIRone 30 mg oral tablet 1 tablet = 30 mg, By Mouth, 2 times a day, # 180 tablet, 0 Refills, Maintenance, 01/15/23 4:18:00 PMEDT, Tablet, Partial fill upon patient request if the prescription is for a schedule II opioid drug. Start Date: 01/15/23 Status: Ordered Quantity: 180.0 Unit: tablet Repeat number: 1 Coreg 25 mg oral tablet 25 mg, 1, tablet, By Mouth, 2 times a day, # 90 tablet, Refills 3, Tot. Refills 3, Maintenance, 06/26/24 8:53:00 AM EDT, Route to Pharmacy Electronically, [facility] [place]), 180, cm, 06/12/24 8:54:00 EDT,Height, 119.2, kg, 11/27/23 6:43:00 EST, Dry Weight Start Date: 06/26/24 Status: Ordered Quantity: 90.0 Unit: tablet Repeat number: 4 Entresto 49 mg-51 mg oral tablet 1 tablet, By Mouth, 2 times a day, # 180 tablet, 3 Refills, Maintenance, 06/25/24 3:23:00 PM EDT, Tablet, [facility] [place]), Partial fill upon patient request if the prescription is for a schedule II opioid drug., 1 tablet By Mouth 2 times a day,x90 days, 180, cm, 06/12/24 8:54:00 EDT, Height, 119.2, kg, 11/27/23 6:43:00 EST, Dry Weight Start Date: 06/25/24 Stop Date: 06/20/25 Status: Ordered Quantity: 180.0 Unit: tablet Repeat number: 4 furosemide 40 mg oral tablet See Instructions, 1 tablet By Mouth Daily for 2 days only, # 7 tablet, Refills 0, Tot. Refills 0, Maintenance, 09/18/23 5:15:00 PM EST, Instructions Replace Required Details, Route to Pharmacy Electronically, [facility] #[id number], Partial fill upon patient request if the prescription is for a schedule II opioid drug., 180, cm, 07/18/23 11:16:00 EDT, Height, 123, kg, 04/10/23 13:52:00 EDT, Dry Weight Start Date: 09/18/23 Status: Ordered Quantity: 7.0 Unit: tablet Repeat number: 1 gabapentin 300 mg oral capsule 300 mg, 1, capsule, By Mouth, 2 times a day, # 60 capsule, Refills 3, Tot. Refills 3, Maintenance, 08/07/24 1:23:00 PM EDT, Route to Pharmacy Electronically, [facility] #[id number], Partial fill upon patient request if the prescription is for a schedule II opioid drug., 180, cm, 06/12/24 8:54:00 EDT, Height, 119.2, kg, 11/27/23 6:43:00 EST, Dry Weight Start Date: 08/07/24 Stop Date: 12/05/24 Status: Ordered Quantity: 60.0 Unit: capsule Repeat number: 4 Jantoven 2.5 mg oral tablet 1 tablet = 2.5 mg, By Mouth, Daily, Take as directed per Coumadin clinic., # 90 tablet, 0 Refills, Maintenance, 02/07/24 2:53:00 PM EDT, Tablet, [facility] #[id number], Partial fill upon patient request if the prescription is for a schedule II opioid drug., 180, cm, 02/06/24 9:41:00 EDT, Height,119.2, kg, 11/27/23 6:43:00 EST, Dry Weight Start Date: 02/07/24 Status: Ordered Quantity: 90.0 Unit: tablet Repeat number: 1 Jantoven 7.5 mg oral tablet 1 tablet = 7.5 mg, By Mouth, Daily, as directed by the coumadin clinic. Pt uses mostly 7.5mg tablets. Please fill the 2.5mg tablet rx only if pt is requesting it., # 90 tablet, 2 Refills, Maintenance, 05/20/24 4:23:00 PM EDT, Tablet, [facility] #[id number], Partial fill upon patient request if the prescription is for a schedule II opioid drug., 180, cm, 05/19/24 14:04:00 EDT, Height, 119.2, kg, 11/27/23 6:43:00 EST, Dry Weight Start Date: 05/20/24 Status: Ordered Quantity: 90.0 Unit: tablet Repeat number: 3 Lantus 100 u/ml subcutaneous solution See Instructions, INJECT 10 UNITS SUBCUTANEOUSLY UNDER THE SKIN AT BEDTIME (DISCARD VIAL AFTER 28 DAYS FROM FIRST USE), # 10 mL, 2 Refills, Maintenance, 06/23/24 7:24:00 AM EDT, [facility] [place], 180, cm, 06/12/24 8:54:00 EDT, Height, 119.2, kg, 11/27/23 6:43:00 EST, Dry Weight Start Date: 06/23/24 Status: Ordered Quantity: 10.0 Unit: mL Repeat number: 1 levothyroxine 0.05 mg oral tablet 1 tablet = 50 mcg, By Mouth, Daily, # 30 tablet, 0 Refills, Maintenance, 01/15/23 4:23:00 PM EDT, Tablet, Partial fill upon patient request if the prescription is for a schedule II opioid drug. Start Date: 01/15/23 Status: Ordered Quantity: 30.0 Unit: tablet Repeat number: 1 Lovenox 120 mg/0.8 mL injectable solution = 120 mg, Subcutaneous Infusion, Every 12 hours, as directed by the coumadin clinic for low INR, # 10 each, 0 Refills, Maintenance, 04/10/23 1:53:00 PM EDT, [facility] #[id number], Partial fill upon patient request if the prescription is for a schedule II opioid drug., 180, cm, 04/04/23 11:17:00 EDT, Height, 123, kg, 04/10/23 13:52:00 EDT, Dry Weight Start Date: 04/10/23 Status: Ordered Quantity: 10.0 Unit: each Repeat number: 1 Mounjaro 5 mg/0.5 mL subcutaneous solution = 5 mg, Subcutaneous Injection, Every week, rotate injection sites, # 4 each, 11 Refills, Maintenance, 09/02/24 8:03:00 PM EST, Solution, [facility]/pharmacy #[id number], 180, cm, 08/13/24 9:26:00 EDT, Height, 119.2, kg, 11/27/23 6:43:00 EST, Dry Weight Start Date: 09/02/24 Status: Ordered Quantity: 4.0 Unit: each Repeat number: 12 NovoLOG FlexPen 100 units/mL injectable solution 0 Refills, Maintenance, 01/15/23 4:17:00 PM EDT, Partial fill upon patient request if the prescription is for a schedule II opioid drug. Start Date: 01/15/23 Status: Ordered Repeat number: 1 One Touch Delica Lancets See Instructions, # 1 pack/packet, Refills 0, Tot. Refills 0, Maintenance, 1 box = 100 lancets, 06/13/23 5:01:00 PM EDT, Supply, 180, cm, 05/30/23 7:56:00 EDT, Height, 123, kg, 04/10/23 13:52:00 EDT, Dry Weight Start Date: 06/13/23 Status: Ordered Quantity: 1.0 Unit: pack/packet Repeat number: 1 One Touch Ultra 2 Glucose Meter See Instructions, # 1 pack/packet, Refills 0, Tot. Refills 0, Maintenance, Dispense one glucometer for DM type II, 06/13/23 4:59:00 PM EDT, Supply, 180, cm, 05/30/23 7:56:00 EDT, Height, 123, kg, 04/10/23 13:52:00 EDT, Dry Weight Start Date: 06/13/23 Status: Ordered Quantity: 1.0 Unit: pack/packet Repeat number: 1 One Touch Ultra Test Strips See Instructions, # 200 each, Refills 5, Tot. Refills 5, Maintenance, use as directed for Type 2 Diabetes Mellitus, 06/13/23 5:00:00 PM EDT, Supply, 180, cm, 05/30/23 7:56:00 EDT, Height, 123, kg, 04/10/23 13:52:00 EDT, Dry Weight Start Date: 06/13/23 Stop Date: 12/10/23 Status: Ordered Quantity: 200.0 Unit: each Repeat number: 6 Pen Holland, 31 G x 5 mm BD Ultra Fine III See Instructions, # 100 each, Refills 5, Tot. Refills 5, Maintenance, use as directed for Type 2 Diabetes Mellitus, 07/18/23 2:26:00 PM EDT, Supply, 180, cm, 07/18/23 11:16:00 EDT, Height, 123, kg, 04/10/23 13:52:00 EDT, Dry Weight Start Date: 07/18/23 Stop Date: 01/14/24 Status: Ordered Quantity: 100.0 Unit: each Repeat number: 6 warfarin 2.5 mg oral tablet See Instructions, Take 1 - 3 tablets By Mouth Once Daily as directed by Coumadin Clinic, # 270 tablet, 3 Refills, Maintenance, 05/14/24 2:44:00 PM EDT, [facility] Partial fill upon patientrequest if the prescription is for a schedule II opioid drug., 180, cm, 04/30/24 11:13:00 EDT, Height, 119.2, kg, 11/27/23 6:43:00 EST, Dry Weight Start Date: 05/14/24 Status: Ordered Quantity: 270.0 Unit: tablet Repeat number: 4 warfarin 2.5 mg oral tablet See Instructions, Take 1 - 3 tablets By Mouth Once Daily as directed by [facility]mad[facility] Clinic, # 90 tablet, 11 Refills, Maintenance, 06/10/24 9:28:00 AM EDT, [facility] #[id number], Partial fill upon patient request if the prescription is for a schedule II opioid drug., 180, cm, 05/19/24 14:04:00 EDT,Height, 119.2, kg, 11/27/23 6:43:00 EST, Dry Weight Start Date: 06/10/24 Status: Ordered Quantity: 90.0 Unit: tablet Repeat number: 12 Problem List Condition Confirmation Course Effective Dates Status H ealth Status Informant Chronic HFrEF (heart failure with reduced ejection fraction) 1 Confirmed Active Hx of septic arthritis R knee 2 Confirmed Active Hx of CABG 3 Confirmed Active Hypothyroidism Confirmed Active Cardiomyopathy, ischemic 4 Confirmed Active LVAD (left ventricular assist device) present 5 Confirmed Active Palpitation Confirmed Active Severe obesity (BMI 35.0-39.9) with comorbidity Confirmed Active Type 2 diabetes mellitus with other circulatory complications (CAD) 6 Confirmed Active 1Per cardiology note 11/14/23 2Lifelong antibiotic tx (cephalexin) 3Per cardiology note 11/14/23: Hx of CABG (FUNK to LAD by report 2014). Lcx and RCA not amenable to revascularization. 4Per cardiology note 11/14/23: ICM w severe LV dysfunction (LVEF 10-15% by last echo february 2022 in [place]). 5Per cardiology note 11/14/23: HM 3 LVAD. Implant 04/2018. VAD speed 5900 RPM. 6CAD, ischemic cardiomyopathy. Social History Social History Type Response Smoking Status Former smoker, quit more than 30 days ago entered on: 02/14/23 Sex Sex Representation Male (finding) Patient Care team information Care Team Personnel Name: Elier BERNARDO, Juanita Buitrago Position: [facility] Physician - Primary Care Member Role: PCP Address: [address] [place], [place] [id number] Telecom: Name: Mervat Bustos RN Position: [facility] RN Member Role: Primary Care Nurse Care Team Related Persons Name: JOHN HANDY Insurance Providers Guarantor name: KIANA ANGELOSLEY Health Plan Information #: 1 Payer: NA Member Number: NA Policy Number: NA Group Number: NA
--- OUTSIDE RECORDS SUMMARY | 2024-10-07 12:56 | XMS_ITS | Continuity of Care Document ---
Author Organization [facility] Address [address] [place] [id number]- Care Team Providers Care Seed Trucker Name Role Phone Elier BERNARDO, Juanita Buitrago Primary Care Physician ( [phone] Encounter [place] Date(s): 08/29/24 - 09/28/24 [facility] [address] [place] [address]- Encounter Type: Triage Allergies, Adverse Reactions, Alerts [...] Quantity: 90.0 Unit: tablet Repeat number: 5 aspirin 81 mg oral delayed release tablet 81 mg, 1, tablet, By Mouth, Daily, # 30 tablet, Refills 0, Maintenance, 09/17/24 10:04:00 AM EST, Partial fill upon patient request if the prescription is for a schedule II opioid drug. Start Date: 09/17/24 Stop Date: 10/17/24 Status: Ordered Quantity: 30.0 Unit: tablet Repeat number: 1 atorvastatin 80 mg oral tablet See Instructions, TAKE 1 TABLET BY MOUTH DAILY, # 30 tablet, 10 Refills, Maintenance, 06/05/24 4:18:00 PM EDT, [facility], 180, cm, 05/19/24 14:04:00 EDT, [...] Quantity: 180.0 Unit: tablet Repeat number: 1 cephalexin monohydrate 500 mg oral tablet 1 tablet = 500 mg, By Mouth, 2 times a day, # 30 tablet, 0 Refills, Maintenance, 09/17/24 10:08:00 AM EST, Partial fill upon patient request if the prescription is for a schedule II opioid drug. Start Date: 09/17/24 Status: Ordered Quantity: 30.0 Unit: tablet Repeat number: 1 Coreg 25 [...] Replace Required Details, Route to Pharmacy Electronically, [facility] #[id number], Partial fill upon patient request if the [...] 1:23:00 PM EDT, Route to Pharmacy Electronically, [facility] #[id number], Partial fill upon patient request if the [...] Refills, Maintenance, 02/07/24 2:53:00 PM EDT, Tablet, [facility] #[id number], Partial fill upon patient request if the [...] Refills, Maintenance, 05/20/24 4:23:00 PM EDT, Tablet, [facility] #[id number], Partial fill upon patient request if the [...] 0 Refills, Maintenance, 04/10/23 1:53:00 PM EDT, [facility] #[id number], Partial fill upon patient request if the prescription is for a schedule II opioid drug., 180, cm, 04/04/23 11:17:00 EDT, Height, 123, kg, 04/10/23 13:52:00 EDT, Dry Weight Start Date: 04/10/23 Status: Ordered Quantity: 10.0 Unit: each Repeat number: 1 morphine 30 mg/8 to 12 hr oral tablet, extended release 1 tablet = 30 mg, By Mouth, Every 12 hours, 0 Refills, Maintenance, 09/17/24 10:06:00 AM EST, ER Tablet, Partial fill upon patient request if the prescription is for a schedule II opioid drug. Start Date: 09/17/24 Status: Ordered Repeat number: 1 Mounjaro 5 mg/0.5 mL subcutaneous solution = 5 mg, Subcutaneous Injection, Every week, rotate injection sites, # 4 each, 11 Refills, Maintenance, 09/02/24 8:03:00 PM EST, Solution, [facility]/pharmacy #[id number], 180, cm, 08/13/24 9:26:00 EDT, Height, [...] Quantity: 200.0 Unit: each Repeat number: 6 oxyCODONE 10 mg oral tablet 2 tablet = 20 mg, By Mouth, Every 4 hours, PRN as needed for pain, 0 Refills, Maintenance, 09/17/2410:06:00 AM EST, Tablet, Partial fill upon patient request if the prescription is for a schedule IIopioid drug. Start Date: 09/17/24 Status: Ordered Repeat number: 1 Pen Muse, 31 G x 5 mm BD Ultra [...] 3 Refills, Maintenance, 05/14/24 2:44:00 PM EDT[facility] Partial fill upon patientrequest if the prescription [...] 11 Refills, Maintenance, 06/10/24 9:28:00 AM EDT, [facility] #[id number], Partial fill upon patient request if the [...] of CABG (FUNK to LAD by report 2013). Lcx and RCA not amenable to revascularization. [...] Care team information Care Team Personnel Name: Juanita Thapa MD Position: [facility] Physician - Primary Care Member Role: PCP Address: [address] [place] [id number] Telecom: Name: Mervat Bustos RN Position: [facility] RN Member Role: Primary Care Nurse Care Team Related Persons Name: JOHN HANDY Insurance Providers Guarantor name: KIANA HANDY [facility] Plan Information #: 1 Payer: NA Member Number: NA Policy Number: NA Group Number: NA
--- OUTSIDE RECORDS SUMMARY | 2024-10-07 12:56 | XMS_ITS | Continuity of Care Document ---
Author Organization [facility] Address [address] [place] [address]- Care Team Providers Care Interpretative Dancer Name Role Phone Elier BERNARDO, Juanita Buitrago Primary Care Physician Encounter [facility] Date(s): 08/20/24 - 09/19/24 [facility] [address] [place] [address]- Encounter Type: Triage Allergies, Adverse Reactions, Alerts [...] 10 Refills, Maintenance, 06/05/24 4:18:00 PM EDT, [facility], 180, cm, 05/19/24 14:04:00 EDT, Height, [...] Replace Required Details, Route to Pharmacy Electronically, [email or web address][id number], Partial fill upon patient request if the [...] 1:23:00 PM EDT, Route to Pharmacy Electronically, [facility] #[id number], Partial fill upon patient request if the [...] Refills, Maintenance, 02/07/24 2:53:00 PM EDT, Tablet, [facility][id number], Partial fill upon patient request if the [...] Refills, Maintenance, 05/20/24 4:23:00 PM EDT, Tablet, [facility] #[id number], Partial fill upon patient request if the [...] 0 Refills, Maintenance, 04/10/23 1:53:00 PM EDT, [facility] #[id number], Partial fill upon patient request if the [...] Refills, Maintenance, 09/02/24 8:03:00 PM EST, Solution, [facility]pharmacy #[id number], 180, cm, 08/13/24 9:26:00 EDT, Height, [...] 09/17/24 Status: Ordered Repeat number: 1 [place], 31 G x 5 mm BD Ultra [...] 3 Refills, Maintenance, 05/14/24 2:44:00 PM EDT, [facility], Partial fill upon patientrequest if the prescription [...] Maintenance, 06/10/24 9:28:00 AM EDT, [facility] #[id number], Partial fill upon patient request if the [...] Team Personnel Name: Juanita Thapa MD Position: [facility] Physician - Primary Care Member Role: PCP Address: [address] [place] [address]- Telecom: Name: Mervat Bustos RN Position: [facility] RN Member Role: Primary Care Nurse Care Team Related Persons Name: JOHN HANDY Insurance Providers Guarantor name: KIANA SHAH [facility] Plan Information #: 1 Payer: JAKE Member Number: NA Policy Number: NA Group Number: NA
--- OUTSIDE RECORDS SUMMARY | 2024-10-07 12:56 | XMS_ITS | Continuity of Care Document ---
Author Organization [facility] Address [address] [place] [address]- Care Team Providers Care Supervisor Claims Name Role Phone Elier BERNARDO, Juanita Buitrago Primary Care Physician Encounter [facility] R [id number] Date(s): 09/18/24 - 09/18/[address] [address]- Discharge Disposition: A-D/C Home Attending Physician: Gracie Figueroa MD Admitting Physician: Gracie Figueroa MD Referring Physician: Philly Villegas MD Encounter Type: Disch Daystay Allergies, Adverse Reactions, Alerts Substance Criticality Severity [...] 10 Refills, Maintenance, 06/05/24 4:18:00 PM EDT, [facility], 180, cm, 05/19/24 14:04:00 EDT, Height, [...] Replace Required Details, Route to Pharmacy Electronically, [facility] #[id number], Partial fill upon patient request if the [...] 1:23:00 PM EDT, Route to Pharmacy Electronically, [facility] #[id number], Partial fill upon patient request if the [...] Refills, Maintenance, 02/07/24 2:53:00 PM EDT, Tablet, [facility] #79543, Partial fill upon patient request if the [...] Refills, Maintenance, 05/20/24 4:23:00 PM EDT, Tablet, [facility] #[id number], Partial fill upon patient request if the [...] 0 Refills, Maintenance, 04/10/23 1:53:00 PM EDT, [facility] #[id number], Partial fill upon patient request if the [...] Refills, Maintenance, 09/02/24 8:03:00 PM EST, Solution, [facility] #[id number], 180, cm, 08/13/24 9:26:00 EDT, [...] 09/17/24 Status: Ordered Repeat number: 1 [place], 31 G x 5 mm BD Ultra [...] 3 Refills, Maintenance, 05/14/24 2:44:00 PM EDT, [facility], Partial fill upon patientrequest if the prescription [...] 11 Refills, Maintenance, 06/10/24 9:28:00 AM EDT, [facility] #[id number], Partial fill upon patient request if the [...] VAD speed 5900 RPM. 6CAD, ischemic cardiomyopathy. Vital Signs Most recent to oldest [Reference Range]: 1 2 Height 180 cm (09/18/24 9:00 AM) Weight 125.5 kg (09/18/24 9:00 AM) Oxygen Saturation [94-100 %] 94 % (09/18/24 9:00 AM) Pulse Rate [55-90 bpm] 73 bpm (09/18/24 9:00 AM) Body Mass Index [18.5-24.99 kg/m2] 38.73 kg/m2 *>HHI* (09/18/24 9:00 AM) Respiratory Rate [16-30 br/min] 16 br/mi n (09/18/24 9:00 AM) 19 br/min (09/18/24 9:00 AM) Temperature [96.8-100.4 DegF] 97.2 DegF (09/18/24 9:00 AM) Mode of Delivery (Oxygen) Room air (09/18/24 9:00 AM) Blood pressure sites Arm, left (09/18/24 9:00 AM) Temperature Route Temporal (09/18/24 9:00 AM) Dry Weight 125.5 kg (09/18/24 9:00 AM) Weight Obtained Via Standing scale (09/18/24 9:00 AM) Dry Weight Obtained Via Standing scale (09/18/24 9:00 AM) Social History Social History Type Response Smoking Status Former smoker, quit more than 30 days ago entered on: 02/14/23 Sex Sex Representation Male (finding) Cardiology Outpatient Note * Tracy JOSUE, Mesha: PERFORM Event Display: Cardiology Note Office Authored Date: [id number] Patient presented to care unit today for a RHC scheduled for 930am. Unfortunately, despite recent INR being 2.4, today's check revealed a 3.8. Dr. Figueroa gave the patient and the option of repeating the value and waiting for the result to see if it was incorrect. The patient and opted to re schedule. Messages sent to reschedule RHC to 10/14 or 2nd week in October and beyond. Message sent to Coumadin clinic w/ plan to repeat INR before leaving the care unit. Repeat INR 3.7. Messaged patient to let him know. Spend significant time with patient and talking about procedure and reassuring them. tearful, states for any procedure she is a nervous wreck since his initial implant. Spent time building trust & reassuring her. Patient was calm about the procedure but not calm about how long it was taking and that he was waiting. Will discuss with SW. Map in care unit 68. Speed 5900 RPM Flow 4.9 LPM Power 5.1 W PI 3.6 All Hx from 09/17 to today with spind downs, some drops in flow but mostly maintaining flow in upper 4s to low 5s. Patient Care team information Care Team Personnel Name: Elier BERNARDO, Juanita Buitrago Position: [facility] Physician - Primary Care Member Role: PCP Address: [address] [place] [address] Telecom: Name: Juli JOSUE, Mervat Position: [facility] RN Member Role: Primary Care Nurse Care Team Related Persons Name: JOHN HANDY Insurance Providers Guarantor name: KIANA HANDY Health Plan Information #: 1 Payer: JAKE Member Number: [id number] Policy Number: JAKE Group Number: [id number] Health Plan Information #: 2 Payer: MEDICARE PART B OUTPT Member Number: [id number] Policy Number: JAKE Group Number: NA
--- OUTSIDE RECORDS SUMMARY | 2024-10-07 12:57 | XMS_ITS | Continuity of Care Document ---
Author Organization [facility] Address [address] [place] [address] Phone Care Team Providers Care Varnishing Unit Tool Setter Name Role Phone Merrill Florence MD Unavailable Unavailable Procedures Procedure Date KNEE ARTHROSC/SURG DRAIN THIGH/KNEE LESN NEG PRESS WND TX </=50 SQ CM DEBRIDE SKIN SUBCUTANEOUS NEGATIVE PRESSURE WOUND THERAPY <= 50 SQ CM INIT HOSPITAL VISIT TRTMNT OF KNEE FX X-RAY EXAM OF KNEE 1 OR 2 Advance Directives Directive Yes / No Effective Date File Name No Information Encounters Encounter Description Practice Location Reason(s) For Visit Diagnoses Date Provider Providers Copied on Encounter [facility], [address] [place] [address], [id number], [place] tel:[phone] [facility] Displaced bicondylar fracture of right tibia, initial encounter for closed fractureInfection following a procedure, other surgical site, initial encounter Dec-0 1 Ludivina Momin. [address] [facility] [address], [place], [id number], [place]. tel:[phone] Referring Provider: Merrill Handy, [address] [facility] [address], [place], [address] . tel:[phone] [facility], [address] [place] [address], [id number], [place] tel:[phone] [facility], [place] No Information Dec-0 - 1 Lee Fraire. [address] [facility], [facility], [place], [place], [id number], . tel:[phone] Referring Provider: Juno Holley, [address] [place] [address], [place], [address] . tel:[phone] INIT HOSPITAL VISIT TO[facility], [address], [place], [place], [id number], [place] tel:[phone] [facility], [place] No Information 1 Lee Fraire. [address] [place] [address], [place], [place], [id number], [place]. tel:[phone] Referring Provider: Juno Holley, [address] [place] [address], [place], [address] . tel:[phone] Family History Family Member Type Diagnosis Age At Onset No Information Payers Payer name Insurance type Covered alliance party ID Authoriza tion(s) [employer] Medicare Adv [id number] [employer] Medicaid [id number] Social History Type Description Quantity Date Captured Comments Sex Male Smoking Status No Information Chief Complaint And Reason For Visit No Information Reason For Referral Reason For Referral No Information History Of Present Illness Encounter Date Complaint History Of Prese nt Illness No Information Functional Status Date Functional Assessmen t No Information Instructions Date Instruction Additional Infor mation No Information Assessments Type Assessment Date No Information Patient Care Teams Name Effective Dates (start - stop) Status Members No Information
--- OUTSIDE RECORDS SUMMARY | 2024-10-07 12:57 | XMS_ITS | Continuity of Care Document ---
Author Organization [facility] Address [address] [place] [address] [place] [address]- Care Team Providers Care Elementary Spanish Teacher Name Role Phone Elier BERNARDO, Juanita Buitrago Primary Care Physician [place] [facility] [place] 09/14/24 [facility] [address] [place] [address] Drive [address] [place] [address]- Attending Physician: Gabriella Simmons Admitting Physician: Gabriella Simmons Referring Physician: Admtr ArMatt Encounter Type: Triage Allergies, Adverse Reactions, Alerts [...] 10 Refills, Maintenance, 06/05/24 4:18:00 PM EDT, [facility], 180, cm, 05/19/24 14:04:00 EDT, [...] Replace Required Details, Route to Pharmacy Electronically, [facility] #[id number], Partial fill upon patient request if the [...] 1:23:00 PM EDT, Route to Pharmacy Electronically, [facility] #[id number], Partial fill upon patient request if the prescription is for a schedule II opioid drug., 180, cm, 06/12/24 8:54:00 EDT, Height, 119.2, kg, 11/27/23 6:43:00 EST, Dry Weight Start Date: 08/07/24 Stop Date: 12/05/24 Status: Ordered Quantity: 60.0 Unit: capsule Repeat number: 4 [place] 2.5 mg oral tablet 1 tablet = 2.5 mg, By Mouth, Daily, Take as directed per Coumadin clinic., # 90 tablet, 0 Refills, Maintenance, 02/07/24 2:53:00 PM EDT, Tablet, [facility] #[id number], Partial fill upon patient request if the [...] Refills, Maintenance, 05/20/24 4:23:00 PM EDT, Tablet, [facility] #96852, Partial fill upon patient request if the [...] 0 Refills, Maintenance, 04/10/23 1:53:00 PM EDT, [email or web address] #[id number], Partial fill upon patient request if the [...] Refills, Maintenance, 09/02/24 8:03:00 PM EST, Solution, [id number], 180, cm, 08/13/24 9:26:00 EDT, Height, [...] 200.0 Unit: each Repeat number: 6 [place], 31 G x 5 mm BD Ultra [...] 3 Refills, Maintenance, 05/14/24 2:44:00 PM EDT[facility], Partial fill upon patientrequest if the prescription [...] 11 Refills, Maintenance, 06/10/24 9:28:00 AM EDT, [facility] #[id number], Partial fill upon patient request if the [...] Personnel Name: Elier BERNARDO, Juanita Buitrago Position: [facility] Physician - Primary Care Member Role: PCP Address: [address] [place] [address] [place] [address] Telecom: Name: Mervat Bustos RN Position: [facility] RN Member Role: Primary Care Nurse Care Team Related Persons Name: JOHN HANDY Insurance Providers Guarantor name: KIANA HANDY Health Plan Information #: 1 Payer: NA Member Number: NA Policy Number: NA Group Number: NA
== END 2024-09-30 11:42 | disposition home or self-care (01) ==
PROVIDERS: PCP Internal Medicine; Visit Provider Nurse Practitioner Family
DX: G89.4 Chronic pain syndrome (principal); E11.40 Type 2 diabetes mellitus with diabetic neuropathy, unspecified; M25.561 Pain in right knee
CPT/HCPCS: 17999; 99214

== ENCOUNTER → 2024-09-30 10:53 | Outpatient (BNVA) | payer MEDICARE, SELFPAY | PROVIDERS: PCP Internal Medicine; Visit Provider Nurse Practitioner Family | DX: E11.42 Type 2 diabetes mellitus with diabetic polyneuropathy (principal); E11.22 Type 2 diabetes mellitus with diabetic chronic kidney disease; N18.30 Chronic kidney disease, stage 3 unspecified; M25.561 Pain in right knee; G89.4 Chronic pain syndrome | CPT/HCPCS: 17999; 99212; J7336 ==